=== PATIENT | female | born 1985 | race Caucasian/White ===

== ENCOUNTER 2018-05-01 12:37 | Emergency (ER) | payer OTHER ==
[2018-05-01 12:44] VITALS: BP 97/54; PULSE 78; TEMP 98.3; BMI 22.6
[2018-05-01] MEDS ORDERED: ACETAMINOPHEN 325 MG TABLET (FP) PO ONE (13:18)
--- NOTE | 2018-05-01 13:23 | PDOC ---
History of Present Illness <Avinash Ren - Last Filed: 05/01/18 13:23> - General History Source: Patient Exam Limitations: No Limitations - History of Present Illness Initial Comments: 05/01/18 13:28 The patient is a 33 year old female, with a significant PMH of interstitial cystitis, who presents to the emergency department with mouth pain s/p having a tooth pulled at the dentist yesterday. The patient states she had an appointment with the dentist yesterday where she had a tooth pulled. The patient states she has noted swelling and pain around the site of the tooth extraction so she came to the ED for evaluation. The patient states she was prescribed antibiotics Clindamycin which she is going to pickle cutter today from the pharmacy. Pt notes she had a court date yesterday and was unable to attend, and was at the court date today when she complained of tooth pain so she was brought to the ED for evaluation. The patient denies difficult swallowing, breathing, chewing. No associated headache, dizziness. Denies fever, chills, nausea, vomit, diarrhea and constipation. Allergies: egg, lactose, Penicillins <Jake Dsouza - Last Filed: 05/01/18 13:30> - General Chief Complaint: Pain Stated Complaint: MOUTH PAIN Time Seen by Provider: 05/01/18 13:04 Past History - Past Medical History Anemia: No Asthma: No Cancer: No Cardiac Disorders: No CVA: No COPD: No CHF: No DVT: No Dementia: No Diabetes: No GI Disorders: No Disorders: Yes (interstitial cystitis) HTN: No Hypercholesterolemia: No Kidney Stones: No Liver Disease: No Psychiatric Problems: Yes (drug abuse) Seizures: Yes Thyroid Disease: No - Surgical History Abdominal Surgery: No Appendectomy: No Cardiac Surgery: No Cholecystectomy: No Lung Surgery: No Neurologic Surgery: No Orthopedic Surgery: Yes (right wrist,left middle finger) - Reproductive History PID: No - Suicide/Smoking/Psychosocial Hx Smoking History: Never smoked Have you smoked in the past 12 months: No Information on smoking cessation initiated: No Hx Alcohol Use: No Drug/Substance Use Hx: Yes (hx of heroin,narcotics,coccain) Substance Use Type: Cocaine, Heroin, Tranquilizers Hx Substance Use Treatment: Yes <Avinash Ren - Last Filed: 05/01/18 13:23> <Jake Dsouza - Last Filed: 05/01/18 13:30> - Past Medical History Allergies/Adverse Reactions: Allergies Allergy/AdvReac Type Severity Reaction Status Date / Time egg AdvReac Intermediate Verified 05/01/18 12:38 lactose AdvReac Intermediate Verified 05/01/18 12:38 Penicillins AdvReac Intermediate Verified 05/01/18 12:38 Home Medications: Ambulatory Orders Fluoxetine HCl [Prozac -] 40 mg PO DAILY 06/16/16 Gabapentin [Neurontin -] 300 mg PO TID 06/16/16 Olanzapine [Zyprexa -] 10 mg PO HS 06/16/16 Topiramate [Topamax] 25 mg PO BID 06/16/16 cloNIDine HCL [Catapres -] 0.1 mg PO BID 06/16/16 clonazePAM [Klonopin -] 1 mg PO TID 06/16/16 traZODone HCL [Desyrel -] 150 mg PO HS 06/16/16 Review of Systems - Review of Systems Comments:: 05/01/18 13:29 CONSTITUTIONAL: No reported: Fever, Chills, Diaphoresis, Generalized Weakness, Malaise, Loss of Appetite HEENT: Present: (+) Mouth pain and swelling. No reported: Rhinorrhea, Nasal Congestion, Throat Pain, Throat Swelling, Difficulty Swallowing, Ear Pain, GASTROINTESTINAL: No reported: Abdominal pain, Nausea, Vomiting, GENITOURINARY: No reported: Dysuria, Frequency, Urgency, Hesitancy, Flank Pain, Genital Pain NEUROLOGIC: No reported: Headache, Focal Weakness, Paresthesias, Vertigo, Lightheadedness, <Jake Dsouza - Last Filed: 05/01/18 13:30> *Physical Exam - Vital Signs Last Vital Signs Temp Pulse Resp BP Pulse Ox 98.3 F 78 18 97/54 100 05/01/18 12:40 05/01/18 12:40 05/01/18 12:40 05/01/18 12:40 05/01/18 12:40 <Avinash Ren - Last Filed: 05/01/18 13:23> - Vital Signs Last Vital Signs Temp Pulse Resp BP Pulse Ox 98.3 F 78 18 97/54 100 05/01/18 12:40 05/01/18 12:40 05/01/18 12:40 05/01/18 12:40 05/01/18 12:40 - Physical Exam Comments: 05/01/18 13:29 GENERAL: The patient is awake, alert, and fully oriented, Nontoxic - in no acute distress. HEAD: Normocephalic, atraumatic. ENT: Normal voice, +swelling in lower jaw, airway patent, no erythema/induration LUNGS: Breath sounds equal, clear to auscultation bilaterally. No wheezes, no rhonchi, no rales. HEART: Regular rate and rhythm, without murmur, rub or gallop. ABDOMEN: Soft, nontender, No guarding, no rebound.No CVA tenderness EXTREMITIES: Normal range of motion, no edema. No cyanosis. No erythema, or tenderness. <Jake Dsouza - Last Filed: 05/01/18 13:30> ED Treatment Course - Medications Given in the ED: ED Medications Discontinued Medications Generic Name Dose Route Start Last Admin Trade Name Freq PRN Reason Stop Dose Admin Acetaminophen 650 mg 05/01/18 13:18 05/01/18 13:26 Tylenol - PO 05/01/18 13:19 650 mg ONCE ONE Administration <Jake Dsouza - Last Filed: 05/01/18 13:30> Medical Decision Making - Medical Decision Making 05/01/18 13:19 33y F hx of interstitial cystitis, sp tooth being pulled yesterday presents with tooth pain. The patient was at court and was complaining of tooth pain so wa ssent to th eED for evalutaion. Pt states she had an rx for clinda that she has not yet picked up. deneis fever/chills, difficulty swallowing. on exam pt has some swelling of lower jaw, c/w s/p tooth extraction no sypmtoms or signs of abcess or airway obstruction will give pt some tylenol and have pt fill her clinda rx and fu with her oral surgeon I discussed the physical exam findings, ancillary test results and final diagnoses with the patient. I answered all of the patient's questions. The patient was satisfied with the care received and felt comfortable with the discharge plan and treatment plan. The patient will call their primary care physician within 24 hours to arrange follow-up and will return to the Emergency Department with any new, persistent or worsening symptoms. A portion of this note was documented by scribe services under my direction. I have reviewed the details of the note, within reason, and agree with the documentation with the following case summary and management plan written by me <Avinash Ren - Last Filed: 05/01/18 13:23> *DC/Admit/Observation/Transfer - Discharge Dispostion Decision to Admit order: No <Avinash Ren - Last Filed: 05/01/18 13:23> - Attestations Scribe Attestion: 05/01/18 13:30 Documentation prepared by Jake Dsouza, acting as medical physicist for Avinash Ren MD. <Jake Dsouza - Last Filed: 05/01/18 13:30> Diagnosis at time of Disposition: Pain, dental - Discharge Dispostion Disposition: HOME Condition at time of disposition: Stable - Referrals Referrals: [facility], Dental clinic [Other] - Patient Instructions Printed Discharge Instructions: DI for Dental Pain Additional Instructions: Return to the emergency department immediately with ANY new, persistent or worsening symptoms. . Go pickle cutter your antibiotic prescription. You MUST call and follow up with your dental surgeon as scheduled for further evaluation of your symptoms. Results were discussed with you. Please make sure your doctor reviews the results of your emergency evaluation. Print Language: [place]
== END 2018-05-01 13:28 | disposition home or self-care (01) ==
LOC: JER 12:37
DX: K08.89 Other specified disorders of teeth and supporting structures (principal); K08.109 Complete loss of teeth, unspecified cause, unspecified class
CPT/HCPCS: 99281-25

== ENCOUNTER 2018-08-24 07:03 | Emergency (ER) | payer SELFPAY ==
[2018-08-24 07:14] VITALS: BMI 24.2
--- NOTE | 2018-08-24 07:20 | PDOC ---
History of Present Illness - General Chief Complaint: Psychiatric Stated Complaint: NOT FEELING WELL Time Seen by Provider: 08/24/18 07:20 - History of Present Illness Initial Comments: 33 year old female with PMH of mood disorder, anxiety, and polysubstance abuse presenting to the ED because "I don't feel well" and uncontrollable urge to move. States that she was recently incarcerated and has been under a lot of stress form her partner. Her movement disorder typically worsens when under stress. States that she woke up this morning with her partner yelling at her and that caused her even more stress which lead to an uncontrollable urge to move her body. She typically takes Klonipin for her anxiety, but she has not had any since being released from skilled nursing because she could not find her prescription. She does admit to cocaine use and possible EtOH ingestion yesterday but denies any other drug usage. She was very physically agitated on presentation, writhing around constantly, however she was verbally pleasant and non-combative. 08/24/18 09:36 Past History - Past Medical History Allergies/Adverse Reactions: Allergies Allergy/AdvReac Type Severity Reaction Status Date / Time egg AdvReac Intermediate Verified 08/24/18 07:13 lactose AdvReac Intermediate Verified 08/24/18 07:13 Penicillins AdvReac Intermediate Verified 08/24/18 07:13 Home Medications: Ambulatory Orders Fluoxetine HCl [Prozac -] 40 mg PO DAILY 06/16/16 Gabapentin [Neurontin -] 300 mg PO TID 06/16/16 Topiramate [Topamax] 25 mg PO BID 06/16/16 cloNIDine HCL [Catapres -] 0.1 mg PO BID 06/16/16 clonazePAM [Klonopin -] 1 mg PO TID 06/16/16 traZODone HCL [Desyrel -] 150 mg PO HS 06/16/16 Dextroamphetamine/Amphetamine [Adderall Xr 30 mg Capsule] 30 mg PO DAILY Anemia: No Asthma: No Cancer: No Cardiac Disorders: No CVA: No COPD: No CHF: No DVT: No Dementia: No Diabetes: No GI Disorders: No Disorders: Yes (interstitial cystitis) HTN: No Hypercholesterolemia: No Kidney Stones: No Liver Disease: No Psychiatric Problems: Yes (drug abuse) Seizures: Yes Thyroid Disease: No - Surgical History Abdominal Surgery: No Appendectomy: No Cardiac Surgery: No Cholecystectomy: No Lung Surgery: No Neurologic Surgery: No Orthopedic Surgery: Yes (right wrist,left middle finger) - Reproductive History PID: No - Suicide/Smoking/Psychosocial Hx Smoking History: Never smoked Have you smoked in the past 12 months: No Hx Alcohol Use: No Drug/Substance Use Hx: Yes (opiates) Substance Use Type: Cocaine, Heroin, Tranquilizers Hx Substance Use Treatment: Yes Review of Systems - Review of Systems Constitutional: No: Chills, Fever, Loss of Appetite HEENTM: No: Blurred Vision, Tearing Respiratory: No: Cough, Shortness of Breath Cardiac (ROS): No: Chest Pain, Edema, Irregular Heart Rate ABD/GI: No: Diarrhea, Nausea, Vomiting : No: Dysuria, Discharge, Frequency Musculoskeletal: No: Gout, Muscle Weakness, Neck Pain Integumentary: No: Bruising, Lesions, Lumps, Pallor, Pruritus Neurological: Yes: Unsteady Gait. No: Headache, Numbness, Tremors, Weakness Psychiatric: Yes: Anxiety, Depression Hematologic/Lymphatic: No: Anemia, Blood Clots, Easy Bleeding *Physical Exam - Vital Signs Last Vital Signs Temp Pulse Resp BP Pulse Ox 130 H 20 152/72 08/24/18 07:09 08/24/18 07:09 08/24/18 07:09 - Physical Exam General Appearance: Yes: Nourished, Appropriately Dressed, Apparent Distress, Moderate Distress, Intoxicated (Patient continuously moving and unable to sit still because of an internal feeling forcing her to move.) HEENT: positive: EOMI, SILVERIO, Normal ENT Inspection, Normal Voice Neck: positive: Trachea midline, Normal Thyroid, Supple. negative: Tender, Rigid Respiratory/Chest: positive: Lungs Clear, Normal Breath Sounds, Decreased Breath Sounds. negative: Chest Tender, Respiratory Distress, Accessory Muscle Use Cardiovascular: positive: Regular Rhythm, Regular Rate Gastrointestinal/Abdominal: positive: Normal Bowel Sounds, Flat, Soft. negative : Tender Lymphatic: negative: Adenopathy, Tenderness Musculoskeletal: positive: Normal Inspection. negative: CVA Tenderness Extremity: positive: Normal Capillary Refill, Normal Inspection, Normal Range of Motion. negative: Tender Integumentary: positive: Normal Color, Dry, Warm Neurologic: positive: accounting manager controller II-XII NML intact, Fully Oriented, Alert, Motor Strength 5/5. negative: Normal Mood/Affect (Patient laughs occasionally for no apparent reason and keeps fidgeting to the point of extreme gait isntability.), Normal Response Medical Decision Making - Medical Decision Making 33 year old female with history of polysubstance abuse and mood disorders presenting with inability to sit still and generally feeling "unwell". She was moving and fidgeting constantly for no apparent reason on presentation but overall pelaant and cooperative. Her movements made it difficult to obtain IV access so 5 IM Haldol and 2 PO Ativan was given to which she eventually responded to and slept for the entirety of the shift with her heart rate normalizing and overall akisthestic movements resolving. Patient never gave us a urine sample but admitted to cocaine usage yesterday and she appears sober at this point. Will DC home with return precautions and drug abuse abstinence information. Patient waiting on ride who should be here around 19:00. 08/24/18 17:46 *DC/Admit/Observation/Transfer Diagnosis at time of Disposition: Intoxication - Discharge Dispostion Disposition: HOME Condition at time of disposition: Improved Decision to Admit order: No - Referrals Referrals: [facility] [place] [facility] [Provider Group] - Patient Instructions Printed Discharge Instructions: Chemical Dependency (Narcotic) (Alternative Therapy), DI for Cocaine Use Disorder Additional Instructions: Please stop using drugs. Please seek care with your primary care physician. If you do not have a primary care physician, please use the clinic on this sheet. Please follow up with your psychiatrist. Please return to the ED if you have any new or worsening symptoms. - Post Discharge Activity
--- NOTE | 2018-08-24 07:45 | PDOC ---
Attending Attestation - Resident Resident Name: Doyle Galicia - ED Attending Attestation I have performed the following: I have examined & evaluated the patient, The case was reviewed & discussed with the resident, I agree w/resident's findings & plan, Exceptions are as noted - HPI HPI: 08/24/18 08:07 33y F hx of chronic interstitial cystitis, polycsubstance abuse, presents with agitation. Pt states she was recently incarcerated until 08/21, last night she endorses using some cocaine and started feeling unwell and agitated. pt denies any fever/chills, pain, headche, dizziness, cp, back pain, abd pain. on exam pt is agitated appearing, with course myoclonic movements, however voluntary movements seem to reduce activities (ie: hlding onto bed rail) however pt abl eot give a coherent history and is AOx3 Card: tachycardic abd: sof tnontender psych: agitated, denies si/hi suspect cocaine intoxication will give ativan as pt is agitated and and interfering with her treatment fluids for tachycardia suspect movement activity psychogenic, possibly related to med usage (pt ntoes she has had similar episodes before when she is stressed) 08/24/18 10:07 pt resting comfortably in the stretcher HR improved to 96 08/24/18 15:32 pt ambulatory, no myoclonic or abnormal activity awake but still somnolent, likely due to sedation meds 08/24/18 17:01 pt awake. no abnormal movement activity anticipate dc with outpatient management - Physicial Exam PE: 08/25/18 09:18 see above - Critical Care Time Total Critical Care Time: 45 Critical Care Statement: The care of this patient involved high complexity decision making to prevent further life threatening deterioration of the patient 's condition and/or to evaluate & treat vital organ system(s) failure or risk of failure. - Medical Decision Making 08/25/18 09:19 see above
[2018-08-24] MEDS ORDERED: LORazepam 1 MG TABLET PO ONE (07:48)
[2018-08-24] MEDS ORDERED: LORazepam 0.5 MG TABLET ONE (07:50)
[2018-08-24] MEDS ORDERED: HALOPERIDOL LACTATE 5 MG/ML IM ONE (08:06)
[2018-08-24] MEDS ORDERED: HALOPERIDOL LACTATE 5 MG/ML ONE (08:08)
[2018-08-24] MEDS ORDERED: LORazepam 2 MG/ML SDV VIAL ONE (08:09)
[2018-08-24] MEDS ORDERED: ONDANSETRON *ODT* 4 MG TABLET SL ONE (09:44)
[2018-08-24 15:50] VITALS: BP 116/46; PULSE 96
== END 2018-08-24 19:40 | disposition home or self-care (01) ==
LOC: JER 07:03
DX: F10.120 Alcohol abuse with intoxication, uncomplicated (principal); F14.10 Cocaine abuse, uncomplicated; F41.9 Anxiety disorder, unspecified; F39 Unspecified mood [affective] disorder; Y90.9 Presence of alcohol in blood, level not specified
CPT/HCPCS: 99282-25